=== PATIENT | male | born 1955 | race Caucasian/White ===

== ENCOUNTER 2016-10-12 15:50 | Emergency (ER) | payer SELFPAY ==
[2016-10-12 15:58] VITALS: BMI 24.3
--- NOTE | 2016-10-12 15:58 | PDOC ---
Rapid Medical Evaluation Time Seen by Provider: 10/12/16 15:54 Medical Evaluation: Allergies Allergy/AdvReac Type Severity Reaction Status Date / Time No Known Allergies Allergy Verified 10/12/16 15:52 10/12/16 15:55 I have performed a brief in-person evaluation of this patient. The patient presents with a chief complaint of: BRB in toilet this am. no abd pain, 2nd episode this afternoon, no fever, denies hemorroids, + cirrhosis, hep c Pertinent physical exam findings: vss I have ordered the following: cbc, comp, stool for occult blood The patient will proceed to the ED for further evaluation.
[2016-10-12 16:59] LABS: BASOPHIL 0.6 % (0-2.0); EOSINOPHIL 1.9 % (0-4.5); MCH 32.3 pg (25.7-33.7); MCHC 34.2 g/dl (32.0-35.9); MEAN CELL VOLUME 94.4 fl (80-96); RDW 16.4 % (11.9-15.9); WHITE BLOOD COUNT 3.1 K/mm3 (4.0-10.0)
--- NOTE | 2016-10-12 17:05 | PDOC ---
History of Present Illness <Krish Najera - Last Filed: 10/12/16 17:04> - History of Present Illness Initial Comments: 10/12/16 18:05 Patient is a 61 year old male with significant medical hx of liver cirrhosis, Hep C, and esophageal varices who is presenting to the ED with two episodes of bright red blood per rectum today. Patient reports noticing bright red blood in the toilet and on tissue after two BMs today. At baseline, the patient has three normal BMs per day. The patient denies passing any clots, abdominal pain, constipation, diarrhea, nausea, vomiting, fever, or chills. Social Hx: Denies hx of IVDA, ETOH abuse. <Yamila Parra - Last Filed: 10/12/16 18:05> <Justine Beck - Last Filed: 10/12/16 22:02> - General Chief Complaint: Bleeding from Anus Stated Complaint: BLOOD IN STOOL Time Seen by Provider: 10/12/16 15:54 Past History - Past Medical History Liver Disease: Yes (CIRRHOSIS, HEP C) - Surgical History Appendectomy: Yes - Psycho/Social/Smoking Cessation Hx Anxiety: No Suicidal Ideation: No Smoking History: Current every day smoker Have you smoked in the past 12 months: Yes Number of Cigarettes Smoked Daily: 4 Information on smoking cessation initiated: Yes 'Breaking Loose' booklet given: 10/12/16 Hx Alcohol Use: No Drug/Substance Use Hx: No Substance Use Type: None <Krish Najera - Last Filed: 10/12/16 17:04> <Yamila Parra - Last Filed: 10/12/16 18:05> <Justine Beck - Last Filed: 10/12/16 22:02> - Past Medical History Allergies/Adverse Reactions: Allergies Allergy/AdvReac Type Severity Reaction Status Date / Time No Known Allergies Allergy Verified 10/12/16 15:52 Home Medications: Ambulatory Orders NK [No Known Home Medication] 10/12/16 Review of Systems - Review of Systems Comments:: 10/12/16 18:06 GENERAL/CONSTITUTIONAL: No fever or chills. No weakness. HEAD, EYES, EARS, NOSE AND THROAT: No change in vision. No ear pain or discharge. No sore throat. CARDIOVASCULAR: No chest pain or shortness of breath. RESPIRATORY: No cough, wheezing, or hemoptysis. GASTROINTESTINAL: Bright red blood per rectum. No nausea, vomiting, diarrhea or constipation. GENITOURINARY: No dysuria, frequency, or change in urination. MUSCULOSKELETAL: No joint or muscle swelling or pain. No neck or back pain. SKIN: No rash NEUROLOGIC: No headache, vertigo, loss of consciousness, or change in strength/ sensation. <Yamila Parra - Last Filed: 10/12/16 18:05> *Physical Exam - Vital Signs Last Vital Signs Temp Pulse Resp BP Pulse Ox 97.8 F 83 18 126/89 100 10/12/16 15:52 10/12/16 15:52 10/12/16 15:52 10/12/16 15:52 10/12/16 15:52 <Krish Najera - Last Filed: 10/12/16 17:04> - Vital Signs Last Vital Signs Temp Pulse Resp BP Pulse Ox 97.8 F 83 18 126/89 100 10/12/16 15:52 10/12/16 15:52 10/12/16 15:52 10/12/16 15:52 10/12/16 15:52 - Physical Exam Comments: 10/12/16 18:07 GENERAL: Awake, alert, and fully oriented, in no acute distress HEAD: No signs of trauma EYES: PERRLA, EOMI, sclera anicteric, conjunctiva clear ENT: Auricles normal inspection, hearing grossly normal, nares patent, oropharynx clear without exudates. Moist mucosa NECK: Normal ROM, supple, no lymphadenopathy, JVD, or masses LUNGS: Breath sounds equal, clear to auscultation bilaterally. No wheezes, and no crackles HEART: Regular rate and rhythm, normal S1 and S2, no murmurs, rubs or gallops ABDOMEN: Soft, nontender, normoactive bowel sounds. No guarding, no rebound. No masses EXTREMITIES: Normal range of motion, no edema. No clubbing or cyanosis. No cords, erythema, or tenderness NEUROLOGICAL: Cranial nerves II through XII grossly intact. Normal speech, normal gait SKIN: Warm, Dry, normal turgor, no rashes or lesions noted. ENDOCRINE: No increased thirst. No abnormal weight change. HEMATOLOGIC/LYMPHATIC: No anemia, easy bleeding, or history of blood clots. ALLERGIC/IMMUNOLOGIC: No hives or skin allergy. RECTAL: No krish blood. No obvious hemorrhoids. Otherwise normal. <Yamila Parra - Last Filed: 10/12/16 18:05> - Vital Signs Last Vital Signs Temp Pulse Resp BP Pulse Ox 97.8 F 83 18 126/89 100 10/12/16 15:52 10/12/16 15:52 10/12/16 15:52 10/12/16 15:52 10/12/16 15:52 <Justine Beck - Last Filed: 10/12/16 22:02> ED Treatment Course - LABORATORY CBC & Chemistry Diagram: 10/12/16 16:40 10/12/16 16:40 - ADDITIONAL ORDERS Additional order review: 10/12/16 16:40 RBC 4.00 D MCV 94.4 MCHC 34.2 RDW 16.4 H Neutrophils % 63.0 D Lymphocytes % 24.3 D Monocytes % 10.2 Eosinophils % 1.9 Basophils % 0.6 <Krish Najera - Last Filed: 10/12/16 17:04> - LABORATORY CBC & Chemistry Diagram: 10/12/16 16:40 10/12/16 16:40 - ADDITIONAL ORDERS Additional order review: Laboratory Results 10/12/16 16:40 Sodium 142 Potassium 3.6 Chloride 109 H Carbon Dioxide 28 Anion Gap 5 L BUN 15 Creatinine 0.7 D Creat Clearance w eGFR > 60 Random Glucose 127 H D Calcium 7.8 L Total Bilirubin 1.3 H AST 206 H D ALT 102 H Alkaline Phosphatase 119 H Total Protein 7.2 Albumin 2.7 L 10/12/16 16:40 RBC 4.00 D MCV 94.4 MCHC 34.2 RDW 16.4 H MPV 9.8 Neutrophils % 63.0 D Lymphocytes % 24.3 D Monocytes % 10.2 Eosinophils % 1.9 Basophils % 0.6 <Yamila Parra - Last Filed: 10/12/16 18:05> - LABORATORY CBC & Chemistry Diagram: 10/12/16 16:40 10/12/16 16:40 - ADDITIONAL ORDERS Additional order review: Laboratory Results 10/12/16 10/12/16 10/12/16 18:25 17:45 16:40 Sodium Potassium Chloride Carbon Dioxide Anion Gap BUN Creatinine Creat Clearance w eGFR Random Glucose Calcium Total Bilirubin AST ALT Alkaline Phosphatase Total Protein Albumin Lipase 417 H Urine Color Mya Urine Appearance Clear Urine pH 5.0 Ur Specific [place] 1.024 Urine Protein Negative Urine Glucose (UA) Negative Urine Ketones Negative Urine Blood 1+ H Urine Nitrite Negative Urine Bilirubin Negative Urine Urobilinogen 4.0 e.u/dl Ur Leukocyte Esterase Negative Urine RBC 21 Urine WBC 7 Ur Epithelial Cells Rare Calcium Oxalate Crystal Rare Urine Mucus Rare Stool Occult Blood Positive Blood Type Antibody Screen 10/12/16 10/12/16 16:40 16:40 Sodium 142 Potassium 3.6 Chloride 109 H Carbon Dioxide 28 Anion Gap 5 L BUN 15 Creatinine 0.7 D Creat Clearance w eGFR > 60 Random Glucose 127 H D Calcium 7.8 L Total Bilirubin 1.3 H AST 206 H D ALT 102 H Alkaline Phosphatase 119 H Total Protein 7.2 Albumin 2.7 L Lipase Urine Color Urine Appearance Urine pH Ur Specific [place] Urine Protein Urine Glucose (UA) Urine Ketones Urine Blood Urine Nitrite Urine Bilirubin Urine Urobilinogen Ur Leukocyte Esterase Urine RBC Urine WBC Ur Epithelial Cells Calcium Oxalate Crystal Urine Mucus Stool Occult Blood Blood Type A POSITIVE Antibody Screen Negative 10/12/16 16:40 RBC 4.00 D MCV 94.4 MCHC 34.2 RDW 16.4 H MPV 9.8 Neutrophils % 63.0 D Lymphocytes % 24.3 D Monocytes % 10.2 Eosinophils % 1.9 Basophils % 0.6 <Justine Beck - Last Filed: 10/12/16 22:02> Medical Decision Making - Medical Decision Making 10/12/16 21:37 Pt has no complaints at this time. His CT demonstrates chronic diverticula; no confirmed colitis or diverticulitis -- as a result I will not start him on abx. He has elevated LFTs consistent with his cirrhosis. His AST is slightly higher than it was 2 years ago, and his lipase is 400s; more elevated than the 200s it was 2 years ago. Pt neither drinks nor has stones; he doesnt have epigastric pain or any pain. He has chronic thrombocytopenia 2 years ago 60s. Now it is in the 40s. Pt follows with Dr. Steward [facility] who did a colonoscopy in Jul 2016 , 4 months ago, and found extensive gastritis and colonic polyps. He also follows with XIMENA Olmedo and states that he has an appointment with him for tomorrow. Pt is refusing admission. Pt is also refusing platelet transfusion. The only reason I am not signing him out AMA, is that he is seeing his PMD tomorrow, and he will be getting repeat labs. I have asked him to return if bleeding is extensive, or if he has symptoms of dizziness or acute anemia. <Justine Beck - Last Filed: 10/12/16 22:02> *DC/Admit/Observation/Transfer - Attestations Physician Attestion: 10/12/16 17:04 I, Dr. Krish Najera, attest that this document has been prepared under my direction and personally reviewed by me in its entirety. I further attest, that it accurately reflects all work, treatment, procedures and medical decision -making performed by me. <Krish Najera - Last Filed: 10/12/16 17:04> - Attestations Scribe Attestion: 10/12/16 18:08 Documentation prepared by Yamila Parra, acting as medical certification specialist for Krish Najera MD. <Yamila Parra - Last Filed: 10/12/16 18:05> - Discharge Dispostion Admit: No <BeckJustine cherry - Last Filed: 10/12/16 22:02> Diagnosis at time of Disposition: Blood in stool, Liver cirrhosis, Platelet count less 100,000 per cubic millimeter - Discharge Dispostion Disposition: HOME Condition at time of disposition: Stable - Referrals Referrals: Jackson Gamez [Primary Care Provider] - - Patient Instructions Additional Instructions: Follow with your primary doctor tomorrow as scheduled and with your Director Franchise Sales Dr. Steward.
[2016-10-12 17:20] LABS: ALBUMIN 2.7 g/dl (3.4-5.0); ANION GAP 5 (8-16); CALCIUM 7.8 mg/dL (8.5-10.1); CO2 28 mmol/L (21-32); CREATININE 0.7 mg/dL (0.7-1.3); GLUCOSE,RANDOM 127 mg/dL (74-106); SGOT/AST 206 U/L (15-37); SGPT/ALT 102 U/L (12-78)
[2016-10-12 17:22] LABS: ALK PHOS 119 U/L (45-117); BILIRUBIN,TOTAL 1.3 mg/dL (0.2-1.0); TOT PROT 7.2 g/dl (6.4-8.2)
[2016-10-12 17:33] LABS: MEAN PLT VOLUME 9.8 fl (7.5-11.1); PLATELET COMMENT2 NO CLOTTING DETECTED; PLATELET COUNT 43 K/MM3 (134-434); PLATELET ESTIMATE MOD DECREASED (NORMAL)
[2016-10-12 18:43] LABS: URINE APPEARANCE CLEAR; URINE BILIRUBIN NEGATIVE (NEGATIVE); URINE COLOR AMBER; URINE GLUCOSE (UA) NEGATIVE (NEGATIVE); URINE KETONE NEGATIVE (NEGATIVE); URINE LEUK ESTERASE NEGATIVE (NEGATIVE); URINE NITRITE NEGATIVE (NEGATIVE); URINE PROTEIN NEGATIVE (NEGATIVE); URINE UROBILINOGEN 4.0 E.U/dl E.U./dl (0.2-1.0)
[2016-10-12 18:47] LABS: URINE BLOOD 1+ (NEGATIVE)
[2016-10-12 18:55] LABS: CALCIUM OXALATE CRYSTALS RARE /hpf (NONE SEEN); URINE MUCUS RARE; URINE RBC 21 /hpf (0-3); URINE WBC 7 /hpf (3-5)
[2016-10-12 21:36] VITALS: BP 130/78; PULSE 67; TEMP 98.1
== END 2016-10-12 21:40 | disposition home or self-care (01) ==
LOC: JER 15:50
DX: K92.1 Melena (principal); D69.6 Thrombocytopenia, unspecified; K74.60 Unspecified cirrhosis of liver; B19.20 Unspecified viral hepatitis C without hepatic coma; F17.210 Nicotine dependence, cigarettes, uncomplicated
CPT/HCPCS: 36415; 74177-TC; 80053; 81003; 81015; 82272; 83690; 85025; 86850; 86900; 86901; 99283-25; Q9967

== ENCOUNTER 2020-02-11 09:22 | Emergency (ER) | payer OTHER ==
[2020-02-11 09:33] VITALS: BMI 23.5
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
[2020-02-11] MEDS ORDERED: ACETAMINOPHEN 500 MG TABLET (FP) PO ONE (11:01)
[2020-02-11] MEDS ORDERED: ACETAMINOPHEN 500 MG TABLET (FP) ONE (11:07)
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
[2020-02-11] MEDS ORDERED: oxyCODONE HCL 5 MG TABLET PO ONE (11:43)
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
[2020-02-11] MEDS ORDERED: oxyCODONE HCL 5 MG TABLET ONE (12:15)
[2020-02-11 13:15] LABS: BASO % 0.3 % (0-2.0); EOS % 0.7 % (0-4.5); HEMATOCRIT 40.8 % (35.4-49); HEMOGLOBIN 13.9 GM/dL (11.7-16.9); LYMPH % 15.7 % (8-40); MCH 31.9 pg (25.7-33.7); MCHC 34.2 g/dl (32.0-35.9); MEAN CELL VOLUME 93.4 fl (80-96); MEAN PLT VOLUME 9.8 fl (7.5-11.1); MONO % 10.6 % (3.8-10.2); NEUT % 72.7 % (42.8-82.8); PLATELET COUNT 57 K/MM3 (134-434); RBC 4.37 M/mm3 (4.00-5.60); RDW 14.6 % (11.9-15.9); WHITE BLOOD COUNT 6.5 K/mm3 (4.0-10.0)
[2020-02-11 13:25] LABS: INR 1.32 (0.83-1.09); PROTHROMBIN TIME (PATIENT) 15.6 SEC (9.7-13.0)
[2020-02-11 13:38] LABS: BILIRUBIN,TOTAL 2.3 mg/dL (0.2-1); BLOOD UREA NITROGEN 17.2 mg/dL (7-18); CALCIUM 8.9 mg/dL (8.5-10.1); CREATININE 0.9 mg/dL (0.55-1.3); POTASSIUM 4.5 mmol/L (3.5-5.1); TOT PROT 8.2 g/dl (6.4-8.2)
[2020-02-11 15:07] VITALS: BP 158/76; PULSE 72; TEMP 98.5
== END 2020-02-11 15:12 | disposition home or self-care (01) ==
LOC: JER 09:22
DX: S82.001A Unspecified fracture of right patella, initial encounter for closed fracture (principal); V00.141A Fall from scooter (nonmotorized), initial encounter
CPT/HCPCS: 36415; 73562-TC-RT-FY; 80053; 85025; 85610; 86850; 86900; 86901; 99284-25; U0003

== ENCOUNTER 2022-12-23 12:48 | Emergency (ER) | payer OTHER ==
[2022-12-23 12:59] VITALS: BP 190/97; PULSE 62; RESP 16; TEMP 97.8; BMI 23.5
[2022-12-23] MEDS ORDERED: ACETAMINOPHEN 500 MG TABLET (FP) PO ONE (13:39)
[2022-12-23] MEDS ORDERED: ACETAMINOPHEN 500 MG TABLET (FP) ONE (14:07)
== END 2022-12-23 14:38 | disposition home or self-care (01) ==
LOC: JER 12:48
DX: M54.9 Dorsalgia, unspecified (principal); W22.09XA Striking against other stationary object, initial encounter
CPT/HCPCS: 71046-TC-FY; 99283-25

== ENCOUNTER 2023-03-02 23:38 | Emergency (ER) | payer OTHER ==
[2023-03-02 23:48] VITALS: BP 158/94; PULSE 85; RESP 18; TEMP 98.1; BMI 24.3
[2023-03-03] MEDS ORDERED: ALBUTEROL SO4 2.5/IPRATROPIUM 0.5 INH SOL 3 ML VIAL.NEB. NEB ONE ×2 (00:38→00:54)
[2023-03-03 01:14] LABS: BASO % 0.6 % (0-2.0); EOS % 6.5 % (0-4.5); HEMATOCRIT 42.2 % (35.4-49); HEMOGLOBIN 14.6 GM/dL (11.7-16.9); LYMPH % 15.7 % (8-40); MCH 31.3 pg (25.7-33.7); MCHC 34.6 g/dl (32.0-35.9); MEAN CELL VOLUME 90.5 fl (80-96); MEAN PLT VOLUME 8.9 fl (7.5-11.1); MONO % 8.3 % (3.8-10.2); NEUT % 68.9 % (42.8-82.8); PLATELET COUNT 40 10^3/uL (134-434); RBC 4.66 M/mm3 (4.00-5.60); RDW 14.6 % (11.9-15.9); WHITE BLOOD COUNT 4.3 K/mm3 (4.0-10.0)
[2023-03-03 02:09] LABS: POTASSIUM 4.5 mmol/L (3.5-5.1)
[2023-03-03 02:12] LABS: ALBUMIN 3.9 g/dl (3.4-5.0); BLOOD UREA NITROGEN 17.6 mg/dL (7-18); CALCIUM 8.6 mg/dL (8.5-10.1)
[2023-03-03 02:18] LABS: TOT PROT 7.6 g/dl (6.4-8.2)
[2023-03-03 02:21] LABS: N-TERMINAL BNP 69.2 pg/ml (5-125)
[2023-03-03] MEDS ORDERED: AZITHROMYCIN 500 MG TABLET PO SCH (10:00)
== END 2023-03-03 03:55 | disposition home or self-care (01) ==
LOC: JER 23:38
PROC: 3E0F7GC Introduction of Other Therapeutic Substance into Respiratory Tract, Via Natural or Artificial Opening (ICD-10-PCS; principal; 2023-03-02)
DX: R07.9 Chest pain, unspecified (principal); R06.2 Wheezing
CPT/HCPCS: 0241U-QW; 36415; 71046-TC-FY; 80053; 83880; 84484; 85025; 93005; 93010; 99283-25

== ENCOUNTER 2023-08-25 23:41 | Emergency (ER) | payer OTHER ==
[2023-08-25 23:47] VITALS: TEMP 98.8; BMI 23.5
[2023-08-25] MEDS ORDERED: ALBUTEROL SO4 2.5/IPRATROPIUM 0.5 INH SOL 3 ML VIAL.NEB. NEB ONE (23:58)
[2023-08-25] MEDS ORDERED: methylPREDNISolone NA SUCC 125 MG/2 ML VIAL ONE (23:58)
[2023-08-26] MEDS ORDERED: MAGNESIUM SULF 50% (8.12 MEQ/2 ML-1 GM VIAL) IVPB ONE (00:03)
[2023-08-26] MEDS ORDERED: methylPREDNISolone NA SUCC 125 MG/2 ML VIAL IVPUSH ONE (00:03)
[2023-08-26] MEDS ORDERED: MAGNESIUM 1GM/D5W - 1 GM/100 ML IVPB IVPB ONE (00:10)
[2023-08-26] MEDS: ALBUTEROL SO4 2.5/IPRATROPIUM 0.5 INH SOL 3 ML VIAL.NEB. NEB SCH ×4 (00:15→00:45)
[2023-08-26 00:31] LABS: BASO % 0.4 % (0-2.0); EOS % 0.2 % (0-4.5); HEMATOCRIT 45.7 % (35.4-49); HEMOGLOBIN 15.5 GM/dL (11.7-16.9); LYMPH % 5.5 % (8-40); MCH 30.2 pg (25.7-33.7); MCHC 33.9 g/dl (32.0-35.9); MEAN CELL VOLUME 89.1 fl (80-96); MEAN PLT VOLUME 8.8 fl (7.5-11.1); MONO % 7.6 % (3.8-10.2); NEUT % 86.3 % (42.8-82.8); PLATELET COUNT 43 10^3/uL (134-434); RBC 5.12 M/mm3 (4.00-5.60); RDW 15.4 % (11.9-15.9); WHITE BLOOD COUNT 3.8 K/mm3 (4.0-10.0)
[2023-08-26 00:36] LABS: INR 1.38 (0.83-1.09); PROTHROMBIN TIME (PATIENT) 15.9 SEC (9.7-13.0)
[2023-08-26 00:36] LABS: VENOUS BASE EXCESS -4.4 mmol/L (-2-2); VENOUS O2 SATURATION 81.4 % (70-80); VENOUS PCO2 45.2 mmHg (38-52); VENOUS PH 7.305 (7.310-7.410)
[2023-08-26 00:39] LABS: ACTIVATED PTT 39.1 SECONDS (25.2-36.5)
[2023-08-26 00:51] LABS: POTASSIUM 3.7 mmol/L (3.5-5.1)
[2023-08-26 00:53] LABS: CALCIUM 8.8 mg/dL (8.5-10.1)
[2023-08-26 00:54] LABS: BLOOD UREA NITROGEN 16.2 mg/dL (7-18)
[2023-08-26 00:59] LABS: TOT PROT 8.1 g/dl (6.4-8.2)
[2023-08-26 01:02] LABS: N-TERMINAL BNP 225.3 pg/ml (5-125)
[2023-08-26 01:13] VITALS: BP 130/79
[2023-08-26 03:39] VITALS: PULSE 102; RESP 18
== END 2023-08-26 03:42 | disposition left against medical advice (07) ==
LOC: JER 23:41
PROC: 3E033GC Introduction of Other Therapeutic Substance into Peripheral Vein, Percutaneous Approach (ICD-10-PCS; principal; 2023-08-26)
PROC: 3E033GC Introduction of Other Therapeutic Substance into Peripheral Vein, Percutaneous Approach (ICD-10-PCS; 2023-08-26)
PROC: 3E0F7GC Introduction of Other Therapeutic Substance into Respiratory Tract, Via Natural or Artificial Opening (ICD-10-PCS; 2023-08-26)
DX: R06.02 Shortness of breath (principal); R05.9 Cough, unspecified; R07.89 Other chest pain; J44.1 Chronic obstructive pulmonary disease with (acute) exacerbation; J11.1 Influenza due to unidentified influenza virus with other respiratory manifestations; Z20.822 Contact with and (suspected) exposure to COVID-19
CPT/HCPCS: 0241U-QW; 36415; 71045-TC-FY; 80053; 82803; 83880; 84484; 85025; 85610; 85730; 93005; 93010; 99285-25